=== PATIENT | female | born 1960 | race Caucasian/White ===

== ENCOUNTER → 2023-07-29 09:11 | Outpatient (REF) | payer OTHER, SELFPAY | LOC: RAD 09:11 | PROVIDERS: ATTENDING PHYSICIAN Family Medicine | DX: M54.2 Cervicalgia (principal) | CPT/HCPCS: 72050 ==

== ENCOUNTER → 2024-01-25 07:42 | Outpatient (REF) | payer OTHER, SELFPAY | LOC: WDC 07:42 | PROVIDERS: ATTENDING PHYSICIAN Nurse Practitioner Women's Health | DX: Z12.31 Encounter for screening mammogram for malignant neoplasm of breast (principal) | CPT/HCPCS: 77063; 77067 ==

== ENCOUNTER → 2025-01-25 08:15 | Outpatient (REF) | payer OTHER, SELFPAY | LOC: WDC 08:15 | PROVIDERS: ATTENDING PHYSICIAN Family Medicine | DX: Z12.31 Encounter for screening mammogram for malignant neoplasm of breast (principal) | CPT/HCPCS: 77063; 77067 ==